=== PATIENT | male | born 1990 | race Caucasian/White ===

== ENCOUNTER → 2021-08-12 | Outpatient (CLI) | payer OTHER ==
--- NOTE | 2021-08-13 13:11 | US ---
EXAMINATION TYPE: US scrotum with doppler. Grayscale and color Doppler Duplex imaging performed of rajendra brown scrotum. DATE OF EXAM: 08/12/2021 COMPARISON: NONE CLINICAL HISTORY: N50.819 TESTICULAR PAIN. Patient states having a history of cysts with removal. Pa tient states feeling an area in left lateral teste. EXAM MEASUREMENTS: TESTICLES: Right Testicle: 4.8 x 3.2 x 2.3 cm Left Testicle: 4.5 x 3.9 x 2.5 cm EPIDIDYMIS HEAD: Right Epididymis: 1.2 x 1.1 x 0.9 cm Left Epididymis: 1.0 x 1.1 x 1.3 cm. There is a 0.5 x 0.5 x 0.3 cm hypoechoic area within the left e pididymis compatible with a small epididymal cyst. Doppler performed to assess for testicular vascularity; good bilateral color flow and waveforms are s een. There is no evidence of testicular torsion. Presence of hydroceles: no Presence of varicoceles: no Cyst seen left teste head = 0.5 x 0.5 x 0.3 cm. Area of concern scanned, epididymal body visualized. IMPRESSION: 1. Left epididymal cyst.
== END | disposition home or self-care (01) ==
LOC: RADUSWWP 16:23
DX: N50.3 Cyst of epididymis (principal)
CPT/HCPCS: 76870; 93975